=== PATIENT | female | born 1930 | race Caucasian/White ===

== ENCOUNTER 2017-01-19 13:24 | Outpatient (CLI) | payer MEDICARE ==
[2015-10-28 16:26] VITALS: BP 114/59
[2017-01-19 14:17] LABS: eGFR (African) > 60; eGFR (Non-African) 41
== END 2017-01-19 13:25 ==
LOC: LAB 13:24
PROVIDERS: ATTEND Clinical Nurse Specialist Medical-Surgical
DX: M81.0 Age-related osteoporosis without current pathological fracture (principal); R26.9 Unspecified abnormalities of gait and mobility; Z82.62 Family history of osteoporosis; Z87.310 Personal history of (healed) osteoporosis fracture; E55.9 Vitamin D deficiency, unspecified; E67.3 Hypervitaminosis D
CPT/HCPCS: 36415; 80053; 82306

== ENCOUNTER 2017-07-09 11:46 | Emergency (ER) | payer MEDICARE ==
[2017-07-09 12:06] LABS: BASOPHILS % 1.3 (0.0-1.5); EOSINOPHILS % 2.8 % (0.0-6.8); MEAN CORPUSCULAR HEMOGLOBIN 30.4 pg (28.0-34.0); MEAN CORPUSCULAR VOLUME 94.3 fl (80.0-100.0); MONOCYTES % 9.4 % (0.0-11.0); NEUTROPHILS # 1.2 # k/uL (1.4-7.7)
[2017-07-09 12:18] LABS: eGFR (African) > 60; eGFR (Non-African) > 60
--- NOTE | 2017-07-09 13:38 | ED Physician Documentation ---
General Adult - HISTORIAN Historian: patient - HPI Stated Complaint: Chest pain Chief Complaint: General Adult Further Comments: yes (87 year old female patient presents with complaint of chest pain last night from [id number]. Patient concerned her nameda is causing chest pain. Patient lives alone, cared for by daughter.) - ROS CONST: no problems EYES/ENT: none CVS/RESP: chest pain. denies: shortness of breath, cough GI/: none MS/SKIN/LYMPH: none NEURO/PSYCH: denies: headache, fainting, dizziness, tingling, numbness, difficulty walking, difficulty with speech, anxiety, depression, other - PAST HX Past History: other (Dementia, Osteoporosis) Allergies/Adverse Reactions: Allergies Allergy/AdvReac Type Severity Reaction Status Date / Time No Known Allergies Allergy Verified 07/09/17 12:06 Home Medications: Ambulatory Orders Medication Instructions Recorded Calcium Carb 500/Vit D 200 1 each PO DAILY #100 tablet 02/21/13 [CALTRATE WITH VIT D] - SOCIAL HX Smoking History: non-smoker - FAMILY HX Family History: No - VITAL SIGNS Vital Signs: Vital Signs Temp Pulse Resp BP Pulse Ox 98.2 F 48 L 14 138/65 98 07/09/17 11:57 07/09/17 12:30 07/09/17 11:57 07/09/17 11:57 07/09/17 12:30 - REVIEWED ASSESSMENTS Nursing Assessment Reviewed: Yes Vitals Reviewed: Yes Progress - Progress Progress: Lab reviewed with patient and daughter. Ca elevated, likely due to supplement. Patient states she is not going to take her Namenda. Instructed to continue her nameda, reassured that namenda did not cause her chest pain. ED Results Lab/Radiology - Lab Results Lab Results: Lab Results 07/09/17 07/09/17 07/09/17 12:00 12:00 12:00 WBC 4.50 K/ul K/ul (4.00-12.00) RBC 3.93 M/ul M/ul (3.90-5.20) Hgb 11.9 g/dL L g/dL (12.0-16.0) Hct 37.0 % % (34.5-46.5) MCV 94.3 fl fl (80.0-100.0) MCH 30.4 pg pg (28.0-34.0) MCHC 32.2 g/dL g/dL (30.0-36.0) RDW 13.0 % % (11.3-14.3) Plt Count 173 K/mm3 K/mm3 (130-400) Neut % (Auto) 27.8 % L % (39.0-79.0) Lymph % (Auto) 55.7 % H % (16.0-50.0) [place] % (Auto) 9.4 % % (0.0-11.0) Eos % (Auto) 2.8 % % (0.0-6.8) Baso % (Auto) 1.3 (0.0-1.5) Neut # (Auto) 1.2 # k/uL L # k/uL (1.4-7.7) Lymph # (Auto) 2.5 # k/uL # k/uL (0.6-4.0) [place] # (Auto) 0.4 # k/uL # k/uL (0.0-0.9) Eos # (Auto) 0.1 # k/uL # k/uL (0.0-0.6) Baso # (Auto) 0.1 # k/uL # k/uL (0.0-0.5) Reactive Lymphs % 3.0 % % (0.0-5.0) Reactive Lymphs # 0.1 # k/uL # k/uL (0.0-0.8) Sodium 141 mmol/L mmol/L (136-145) Potassium 3.8 mmol/L mmol/L (3.5-5.0) Chloride 105 mmol/L mmol/L (98-110) Carbon Dioxide 32 mmol/L mmol/L (20-32) BUN 26 mg/dL mg/dL (10-26) Creatinine 1.2 mg/dL mg/dL (0.4-1.5) Estimated Creat Clear 26 Est GFR ( Amer) > 60 (60 - ) Est GFR (Non-Af Amer) > 60 (60 - ) Glucose 110 mg/dL H mg/dL (70-99) Calcium 11.1 mg/dL H mg/dL (8.5-10.5) Total Bilirubin 0.5 mg/dL mg/dL (0.2-1.2) AST 21 U/L U/L (0-41) ALT 5 U/L U/L (0-45) Alkaline Phosphatase 60 U/L U/L (46-116) Troponin I < 0.03 ng/mL L ng/mL (0.03-0.06) Total Protein 7.3 g/dL g/dL (6.0-8.5) Albumin 4.4 g/dL g/dL (3.0-5.5) - Orders Orders: ED Orders Category Date Time Status Continuous EKG monitoring Q30M Care 07/09/17 11:55 Active Continuous Pulse Oximetry Q30M Care 07/09/17 11:[address] IV Lock 1T Care 07/09/17 11:55 Active CHEST 2 VIEW [CHEST P.A.&LAT 2 VIEWS] [RAD] Stat Exams 07/09/17 Ordered CBC/PLATELET/DIFF Stat Lab 07/09/17 12:00 Completed CMP Stat Lab 07/09/17 12:00 Completed TROPONIN I (cTnI) Stat Lab 07/09/17 12:00 Completed UA W/MICRO IF INDICATED Stat Lab 07/09/17 11:55 Ordered Oxygen Daily Oxygen 07/09/17 12:00 Ordered EKG WITH COMPARISON Stat Ther 07/09/17 11:55 Completed General Adult Physical Exam - PHYSICAL EXAM GENERAL APPEARANCE: [id number] N EENT: eye inspection normal, RENE RESPIRATORY: no resp distress, chest non-tender, breath sounds normal CVS: reg rate & rhythm, heart sounds normal, equal pulses, no murmur, no gallop , PMI nml, no JVD, no friction rub, 24 ABDOMEN: soft, no organomegaly, normal bowel sounds, no abdominal bruit, no distension SKIN: normal color, warm/dry, NR, INT, PAL, DR EXTREMITIES: non-tender, normal range of motion, no evidence of injury, no edema , J, ECLECTIC DOCTOR NEURO: oriented X3, CN's nml as tested, motor nml, sensation nml, mood/affect nml Discharge Clincal Impression: Non-cardiac chest pain Referrals: Gera Fuller MD [Primary Care Provider] - 2 Days Additional Instructions: Rest Continue all of your current medications as ordered. Return to Er if you have chest pain with shortness of breath, diaphoresis, nausea and/or radiation to the jaws and arms. Home Medications: Ambulatory Orders Calcium Carb 500/Vit D 200 [CALTRATE WITH VIT D] 1 each PO DAILY #100 tablet Condition: Stable Disposition: 01 HOME, SELF-CARE Decision to Admit: NO Decision Time: 13:40
[2017-07-09 13:46] VITALS: BP 116/49
--- NOTE | 2017-07-09 14:59 | Diagnostic Imaging Report ---
CORIN GILBERT (CASE MANAGEMENT DIRECTOR) - ER [facility] [id number] [facility].[address] [address] Report Submission Date: Jul 09, 2017 12:25:01 PM CDT Patient Study Name: BENNY BANGURA Date: Jul 09, 2017 12:01:18 PM CDT Modality Type: CR Gender: F Description: CHEST : [birth year] Institution: [facility] Physician: CORIN GILBERT (KEYANA) - ER Examination: PA and lateral chest. History: Evaluate lung green. Comparison exam: None provided Findings: PA lateral chest demonstrate a normal cardiac silhouette. Tortuosity of the thoracic aorta with vascular calcifications involving the aortic arch. No focal infiltrate. No effusion. No blunting of the costophrenic margins. Osseous structures are appropriate for age. Minimal anterior wedging of the lower thoracic vertebral body. Impression: No acute pulmonary process. Electronically signed on Jul 09, 2017 12:25:01 PM CDT by: Ric SHELLEY
[2017-07-09 17:23] LABS: APPEARANCE,URINE CLEAR (CLEAR); COLOR,URINE YELLOW (YELLOW)
[2017-07-09 17:24] LABS: OCCULT BLOOD,URINE NEGATIVE (NEGATIVE); UROBILINOGEN URINE 0.2 Eu (0.2-1.0)
== END 2017-07-09 13:37 | disposition home or self-care (01) ==
LOC: ED 11:46
DX: R07.89 Other chest pain (principal)
CPT/HCPCS: 71020; 80053; 81002; 84484; 85025; 87086; 99283; S1016

== ENCOUNTER 2017-07-25 13:02 | Outpatient (CLI) | payer MEDICARE ==
[2017-07-25 14:13] LABS: eGFR (African) > 60; eGFR (Non-African) 41
== END 2017-07-25 13:03 ==
LOC: LAB 13:02
PROVIDERS: ATTEND Clinical Nurse Specialist Medical-Surgical
DX: M81.0 Age-related osteoporosis without current pathological fracture (principal); R26.9 Unspecified abnormalities of gait and mobility; Z82.62 Family history of osteoporosis; Z87.310 Personal history of (healed) osteoporosis fracture; E55.9 Vitamin D deficiency, unspecified; E67.3 Hypervitaminosis D
CPT/HCPCS: 36415; 80053; 82306

== ENCOUNTER 2018-01-28 11:46 | Outpatient (CLI) | payer MEDICARE | END 2018-01-28 11:47 | LOC: LAB 11:46 | PROVIDERS: ATTEND Clinical Nurse Specialist Medical-Surgical | DX: M81.0 Age-related osteoporosis without current pathological fracture (principal); R26.9 Unspecified abnormalities of gait and mobility; Z82.62 Family history of osteoporosis; Z87.310 Personal history of (healed) osteoporosis fracture; E55.9 Vitamin D deficiency, unspecified; E67.3 Hypervitaminosis D | CPT/HCPCS: 36415; 82306; 82310 ==